=== PATIENT | female | born 1930 | race African-American/Black ===

== ENCOUNTER 2020-03-30 21:14 | Inpatient (IN) | payer MEDICARE, BC ==
[~2020-03-30] VITALS: Ht 162.6 cm; Wt 61.7 kg
[2020-03-30 21:14] VITALS: BP_SYST 136; BP_SYST 156; BP_DIAS 76; BP_DIAS 88
[2020-03-30] MEDS ORDERED: CLONIDINE 0.1MG TABLET PO PRN (23:00)
[2020-03-30] MEDS ORDERED: MAGNESIUM/ALUMINUM HYDROXIDE/SIMETHICONE 30ML UDC PO PRN (23:00)
[2020-03-30] MEDS ORDERED: ONDANSETRON HCL 4MG/2ML INJ IV PRN (23:00)
[2020-03-30] MEDS ORDERED: HYDROCODONE/ACETAMINOPHEN 10/325MG TABLET PO PRN (23:00)
[2020-03-30] MEDS ORDERED: DOCUSATE SODIUM 100MG CAPSULE PO PRN (23:00)
[2020-03-30] MEDS ORDERED: DIPHENHYDRAMINE 50MG/ML VIAL IV PRN (23:00)
[2020-03-30] MEDS ORDERED: IPRATROPIUM/ALBUTEROL 0.5-3(2.5)MG/3ML NEB HHN PRN (23:00)
[2020-03-30] MEDS ORDERED: GUAIFENESIN 200MG/10ML SUGAR FREE UDC PO PRN (23:00)
[2020-03-31 02:57] LABS: CLARITY URINE CLEAR (CLEAR); COLOR URINE YELLOW (YELLOW); KETONES URINE 1+ (NEGATIVE); LEUKOCYTE ESTERASE URINE NEGATIVE (NEGATIVE); NITRITE URINE NEGATIVE (NEGATIVE); OCCULT BLOOD URINE TRACE (NEGATIVE); PH URINE 7.5 (4.5-8.0); PROTEIN URINE 1+ (NEGATIVE); SPECIFIC GRAVITY URINE 1.014 (1.005-1.030); UROBILINOGEN URINE 0.2 E.U./dL (0.2-1.0)
[2020-03-31] MEDS: SODIUM CHLORIDE 0.9% INJ 3ML FLUSH IVF SCH ×3 (06:30→21:52)
[2020-03-31 08:00] VITALS: BP 179/108
[2020-03-31] MEDS: DOCUSATE SODIUM 100MG CAPSULE PO SCH ×2 (09:00→18:12)
[2020-03-31] MEDS: AMLODIPINE 2.5MG TABLET PO SCH ×3 (09:00→21:00)
[2020-03-31] MEDS: CARVEDILOL 3.125 MG TABLET PO SCH ×3 (09:00→21:00)
[2020-03-31] MEDS ORDERED: LOSARTAN POTASSIUM 25 MG TABLET PO SCH (10:30)
[2020-03-31] MEDS: ONDANSETRON 4MG ODT PO PRN (14:23)
[2020-03-31] MEDS ORDERED: CLONIDINE 0.2MG TABLET PO PRN (14:45)
[2020-03-31] MEDS ORDERED: LOSARTAN POTASSIUM 25 MG TABLET PO NR (14:45)
[2020-03-31 20:00] VITALS: BP 100/53
[2020-03-31] MEDS: ENOXAPARIN 30MG/0.3ML SYR SUBCUT SCH (21:00)
[2020-03-31 22:31] LABS: VITAMIN B12 SERUM > 2000.0 pg/mL (211-911)
[2020-04-01] MEDS: SODIUM CHLORIDE 0.9% INJ 3ML FLUSH IVF SCH ×4 (06:00→21:11)
[2020-04-01 07:09] LABS: BASOPHILS % 0.2 % (0.0-2.0); HEMATOCRIT. 31.8 % (36.0-48.0); HEMOGLOBIN. 10.6 g/dL (12.0-16.0); LYMPHOCYTES % 11.6 % (20.0-50.0); MEAN CORPUSCULAR HEMOGLOBIN 29.9 pg (28.0-32.0); MEAN CORPUSCULAR VOLUME 89.6 fL (81.0-99.0); MONOCYTES % 8.5 % (2.0-8.0); NEUTROPHILS % 79.7 % (40.0-76.0); PLATELET 317 x1000/uL (130-400); RED BLOOD CELL COUNT 3.54 mill/uL (4.2-5.4); RED CELL DISTRIBUTION WIDTH 14.1 % (11.6-14.6)
[2020-04-01 07:20] LABS: CHLORIDE 102 mEq/L (98-107)
[2020-04-01 08:00] VITALS: BP 113/59
[2020-04-01] MEDS: BISACODYL 5MG TABLET PO PRN (09:54)
[2020-04-01] MEDS: DOCUSATE SODIUM 100MG CAPSULE PO SCH ×2 (09:54→16:28)
[2020-04-01] MEDS: AMLODIPINE 2.5MG TABLET PO SCH ×2 (09:54→21:08)
[2020-04-01] MEDS: LOSARTAN POTASSIUM 50 MG TABLET PO SCH (09:54)
[2020-04-01] MEDS: CARVEDILOL 3.125 MG TABLET PO SCH ×2 (09:54→21:08)
[2020-04-01 20:00] VITALS: BP 104/53
[2020-04-01] MEDS: ENOXAPARIN 30MG/0.3ML SYR SUBCUT SCH (21:09)
[2020-04-02] MEDS: SODIUM CHLORIDE 0.9% INJ 3ML FLUSH IVF SCH ×3 (06:00→21:26)
[2020-04-02 08:00] VITALS: BP 138/72
[2020-04-02] MEDS: DOCUSATE SODIUM 100MG CAPSULE PO SCH ×2 (09:53→16:56)
[2020-04-02] MEDS: AMLODIPINE 2.5MG TABLET PO SCH ×2 (09:53→21:00)
[2020-04-02] MEDS: LOSARTAN POTASSIUM 50 MG TABLET PO SCH (09:53)
[2020-04-02] MEDS: CARVEDILOL 3.125 MG TABLET PO SCH ×2 (09:54→21:00)
[2020-04-02 20:00] VITALS: BP 116/61
[2020-04-02] MEDS: ENOXAPARIN 30MG/0.3ML SYR SUBCUT SCH (21:26)
[2020-04-03] MEDS: SODIUM CHLORIDE 0.9% INJ 3ML FLUSH IVF SCH (05:44)
[2020-04-03 07:49] LABS: BASOPHILS % 0.5 % (0.0-2.0); EOSINOPHILS % 0.4 % (0.0-5.0); HEMATOCRIT. 30.9 % (36.0-48.0); HEMOGLOBIN. 10.5 g/dL (12.0-16.0); LYMPHOCYTES % 11.5 % (20.0-50.0); MEAN CORPUSCULAR HEMOGLOBIN 30.3 pg (28.0-32.0); MEAN CORPUSCULAR VOLUME 89.4 fL (81.0-99.0); MEAN PLATELET VOLUME 7.7 fl (7.4-10.4); MONOCYTES % 9.1 % (2.0-8.0); NEUTROPHILS % 78.5 % (40.0-76.0); PLATELET 320 x1000/uL (130-400); RED BLOOD CELL COUNT 3.46 mill/uL (4.2-5.4); RED CELL DISTRIBUTION WIDTH 13.8 % (11.6-14.6)
[2020-04-03 07:54] LABS: CHLORIDE 102 mEq/L (98-107)
[2020-04-03 08:21] VITALS: BP 123/60
[2020-04-03] MEDS: CARVEDILOL 3.125 MG TABLET PO SCH ×2 (09:17→21:03)
[2020-04-03] MEDS: AMLODIPINE 2.5MG TABLET PO SCH ×2 (09:17→21:03)
[2020-04-03] MEDS: DOCUSATE SODIUM 100MG CAPSULE PO SCH ×2 (09:17→16:31)
[2020-04-03] MEDS: LOSARTAN POTASSIUM 50 MG TABLET PO SCH (09:17)
[2020-04-03] MEDS ORDERED: POTASSIUM CHLORIDE 20MEQ TABLET SR PO SCH (09:30)
[2020-04-03] MEDS: ACETAMINOPHEN 325MG TABLET PO PRN (16:31)
[2020-04-03 20:00] VITALS: BP 120/66
[2020-04-03] MEDS: ENOXAPARIN 30MG/0.3ML SYR SUBCUT SCH (21:04)
[2020-04-04 07:51] VITALS: BP 139/71
[2020-04-04] MEDS: DOCUSATE SODIUM 100MG CAPSULE PO SCH ×2 (09:18→16:25)
[2020-04-04] MEDS: LOSARTAN POTASSIUM 50 MG TABLET PO SCH (09:18)
[2020-04-04] MEDS: AMLODIPINE 2.5MG TABLET PO SCH ×2 (09:19→20:24)
[2020-04-04] MEDS: CARVEDILOL 3.125 MG TABLET PO SCH ×2 (09:19→20:24)
[2020-04-04] MEDS ORDERED: VITAMIN D2 PO SCH (16:52)
[2020-04-04 20:00] VITALS: BP 129/66
[2020-04-04] MEDS ORDERED: [UNRECOGNIZED DRUG - OTHER] PO SCH (20:00)
[2020-04-04] MEDS ORDERED: BIOTIN PO SCH (20:00)
[2020-04-04] MEDS ORDERED: [UNRECOGNIZED DRUG - OTHER] PO SCH ×2 (20:00)
[2020-04-04] MEDS ORDERED: [UNRECOGNIZED DRUG - OTHER] PO SCH (20:00)
[2020-04-04] MEDS ORDERED: CYANOCOBALAMIN PO SCH (20:00)
[2020-04-04] MEDS: ACETAMINOPHEN 325MG TABLET PO PRN (20:23)
[2020-04-04] MEDS: BISACODYL 5MG TABLET PO PRN (20:23)
[2020-04-04] MEDS: ENOXAPARIN 30MG/0.3ML SYR SUBCUT SCH (20:25)
[2020-04-05] MEDS: ACETAMINOPHEN 325MG TABLET PO PRN (00:43)
[2020-04-05 07:52] VITALS: BP 143/78
[2020-04-05] MEDS: AMLODIPINE 2.5MG TABLET PO SCH ×2 (08:56→21:14)
[2020-04-05] MEDS: LOSARTAN POTASSIUM 50 MG TABLET PO SCH (08:56)
[2020-04-05] MEDS: DOCUSATE SODIUM 100MG CAPSULE PO SCH ×2 (08:56→17:00)
[2020-04-05] MEDS: CARVEDILOL 3.125 MG TABLET PO SCH ×2 (08:57→21:14)
[2020-04-05] MEDS: PATIENT OWN MEDICATION PO SCH (08:57)
[2020-04-05 10:42] LABS: CHLORIDE 102 mEq/L (98-107)
[2020-04-05] MEDS: ASCORBIC ACID 500 MG TABLET PO SCH (15:14)
[2020-04-05] MEDS: ZINC SULFATE 220 MG ( 50 ) CAPSULE PO SCH (15:15)
[2020-04-05 20:00] VITALS: BP 116/56
[2020-04-05] MEDS: ENOXAPARIN 30MG/0.3ML SYR SUBCUT SCH (21:14)
[2020-04-06 07:55] VITALS: BP 152/73
[2020-04-06] MEDS: PATIENT OWN MEDICATION PO SCH (09:00)
[2020-04-06] MEDS: DOCUSATE SODIUM 100MG CAPSULE PO SCH ×2 (09:00→16:30)
[2020-04-06] MEDS: ZINC SULFATE 220 MG ( 50 ) CAPSULE PO SCH (10:20)
[2020-04-06] MEDS: LOSARTAN POTASSIUM 50 MG TABLET PO SCH (10:20)
[2020-04-06] MEDS: ASCORBIC ACID 500 MG TABLET PO SCH (10:20)
[2020-04-06] MEDS: AMLODIPINE 2.5MG TABLET PO SCH ×2 (10:20→21:00)
[2020-04-06] MEDS: CARVEDILOL 3.125 MG TABLET PO SCH ×2 (10:20→21:00)
[2020-04-06] MEDS: ACETAMINOPHEN 325MG TABLET PO PRN ×2 (10:22→18:21)
[2020-04-06 20:00] VITALS: BP 101/45
[2020-04-06] MEDS: ENOXAPARIN 30MG/0.3ML SYR SUBCUT SCH (21:54)
[2020-04-07] MEDS: ACETAMINOPHEN 325MG TABLET PO PRN ×3 (05:25→21:25)
[2020-04-07 07:59] VITALS: BP 128/59
[2020-04-07] MEDS: ASCORBIC ACID 500 MG TABLET PO SCH (08:23)
[2020-04-07] MEDS: LOSARTAN POTASSIUM 50 MG TABLET PO SCH (08:23)
[2020-04-07] MEDS: ZINC SULFATE 220 MG ( 50 ) CAPSULE PO SCH (08:24)
[2020-04-07] MEDS: CARVEDILOL 3.125 MG TABLET PO SCH ×2 (08:24→21:25)
[2020-04-07] MEDS: AMLODIPINE 2.5MG TABLET PO SCH ×2 (08:24→21:26)
[2020-04-07] MEDS: PATIENT OWN MEDICATION PO SCH (08:24)
[2020-04-07] MEDS: DOCUSATE SODIUM 100MG CAPSULE PO SCH ×2 (08:27→17:00)
[2020-04-07] MEDS ORDERED: TAMSULOSIN HCL 0.4MG SR CAPSULE PO SCH (13:30)
[2020-04-07 20:00] VITALS: BP 110/58
[2020-04-07] MEDS: ENOXAPARIN 30MG/0.3ML SYR SUBCUT SCH (21:26)
[2020-04-08] MEDS: TAMSULOSIN HCL 0.4MG SR CAPSULE PO SCH ×2 (05:58→08:53)
[2020-04-08 08:14] VITALS: BP 97/64
[2020-04-08] MEDS: LOSARTAN POTASSIUM 50 MG TABLET PO SCH (08:52)
[2020-04-08] MEDS: DOCUSATE SODIUM 100MG CAPSULE PO SCH ×2 (08:52→16:41)
[2020-04-08] MEDS: AMLODIPINE 2.5MG TABLET PO SCH ×2 (08:52→21:55)
[2020-04-08] MEDS: CARVEDILOL 3.125 MG TABLET PO SCH ×2 (08:52→21:00)
[2020-04-08] MEDS: ZINC SULFATE 220 MG ( 50 ) CAPSULE PO SCH (08:52)
[2020-04-08] MEDS: ASCORBIC ACID 500 MG TABLET PO SCH (08:52)
[2020-04-08] MEDS: PATIENT OWN MEDICATION PO SCH (08:53)
[2020-04-08] MEDS: ACETAMINOPHEN 325MG TABLET PO PRN (09:09)
[2020-04-08] MEDS: TRAMADOL 50MG TABLET PO PRN (14:35)
[2020-04-08 20:00] VITALS: BP_SYST 100; BP_SYST 110; BP_DIAS 61; BP_DIAS 82
[2020-04-08] MEDS: ENOXAPARIN 30MG/0.3ML SYR SUBCUT SCH (21:00)
[2020-04-09] MEDS: TRAMADOL 50MG TABLET PO PRN ×2 (00:37→11:15)
[2020-04-09 08:00] VITALS: BP 146/78
[2020-04-09] MEDS: ASCORBIC ACID 500 MG TABLET PO SCH (09:52)
[2020-04-09] MEDS: ZINC SULFATE 220 MG ( 50 ) CAPSULE PO SCH (09:52)
[2020-04-09] MEDS: TAMSULOSIN HCL 0.4MG SR CAPSULE PO SCH (09:53)
[2020-04-09] MEDS: AMLODIPINE 2.5MG TABLET PO SCH ×2 (09:53→21:39)
[2020-04-09] MEDS: CARVEDILOL 3.125 MG TABLET PO SCH ×2 (09:53→21:38)
[2020-04-09] MEDS: DOCUSATE SODIUM 100MG CAPSULE PO SCH ×2 (09:53→16:49)
[2020-04-09] MEDS: PATIENT OWN MEDICATION PO SCH (09:53)
[2020-04-09] MEDS: LOSARTAN POTASSIUM 50 MG TABLET PO SCH (09:53)
[2020-04-09] MEDS: ONDANSETRON 4MG ODT PO PRN (12:26)
[2020-04-09 20:00] VITALS: BP 120/66
[2020-04-09] MEDS: ENOXAPARIN 30MG/0.3ML SYR SUBCUT SCH (21:39)
[2020-04-10 05:59] LABS: HEMATOCRIT. 29.9 % (36.0-48.0); MEAN CORPUSCULAR HEMOGLOBIN 30.2 pg (28.0-32.0); MEAN CORPUSCULAR VOLUME 90.2 fL (81.0-99.0); MEAN PLATELET VOLUME 7.4 fl (7.4-10.4); PLATELET 369 x1000/uL (130-400); RED BLOOD CELL COUNT 3.32 mill/uL (4.2-5.4); RED CELL DISTRIBUTION WIDTH 14.1 % (11.6-14.6)
[2020-04-10] MEDS: ACETAMINOPHEN 325MG TABLET PO PRN (07:53)
[2020-04-10 08:00] VITALS: BP 107/50
[2020-04-10] MEDS: AMLODIPINE 2.5MG TABLET PO SCH ×2 (09:00→21:00)
[2020-04-10] MEDS: LOSARTAN POTASSIUM 50 MG TABLET PO SCH (09:00)
[2020-04-10] MEDS: CARVEDILOL 3.125 MG TABLET PO SCH ×2 (09:00→21:00)
[2020-04-10] MEDS: DOCUSATE SODIUM 100MG CAPSULE PO SCH ×2 (09:00→17:00)
[2020-04-10] MEDS: TAMSULOSIN HCL 0.4MG SR CAPSULE PO SCH (09:17)
[2020-04-10] MEDS: ZINC SULFATE 220 MG ( 50 ) CAPSULE PO SCH (09:18)
[2020-04-10] MEDS: PATIENT OWN MEDICATION PO SCH (09:19)
[2020-04-10] MEDS: ASCORBIC ACID 500 MG TABLET PO SCH (09:19)
[2020-04-10] MEDS: BISACODYL 5MG TABLET PO PRN (15:43)
[2020-04-10 18:23] LABS: PLATELET ESTIMATE NORMAL
[2020-04-10 20:00] VITALS: BP 106/46
[2020-04-10] MEDS: ENOXAPARIN 30MG/0.3ML SYR SUBCUT SCH (21:33)
[2020-04-11 08:00] VITALS: BP 139/53
[2020-04-11] MEDS: DOCUSATE SODIUM 100MG CAPSULE PO SCH ×2 (09:00→09:19)
[2020-04-11] MEDS: CARVEDILOL 3.125 MG TABLET PO SCH ×2 (09:18→21:27)
[2020-04-11] MEDS: AMLODIPINE 2.5MG TABLET PO SCH ×2 (09:19→21:26)
[2020-04-11] MEDS: TAMSULOSIN HCL 0.4MG SR CAPSULE PO SCH (09:19)
[2020-04-11] MEDS: ASCORBIC ACID 500 MG TABLET PO SCH (09:19)
[2020-04-11] MEDS: LOSARTAN POTASSIUM 50 MG TABLET PO SCH (09:19)
[2020-04-11] MEDS: ZINC SULFATE 220 MG ( 50 ) CAPSULE PO SCH (09:20)
[2020-04-11] MEDS: PATIENT OWN MEDICATION PO SCH (09:20)
[2020-04-11] MEDS: ENOXAPARIN 30MG/0.3ML SYR SUBCUT SCH (12:22)
[2020-04-11] MEDS: ACETAMINOPHEN 325MG TABLET PO PRN (14:37)
[2020-04-11 20:00] VITALS: BP 119/53
[2020-04-12] MEDS: ACETAMINOPHEN 325MG TABLET PO PRN ×2 (04:29→12:58)
[2020-04-12 07:35] VITALS: BP 122/72
[2020-04-12] MEDS: ZINC SULFATE 220 MG ( 50 ) CAPSULE PO SCH (08:10)
[2020-04-12] MEDS: AMLODIPINE 2.5MG TABLET PO SCH ×2 (08:10→22:01)
[2020-04-12] MEDS: TAMSULOSIN HCL 0.4MG SR CAPSULE PO SCH (08:10)
[2020-04-12] MEDS: ENOXAPARIN 30MG/0.3ML SYR SUBCUT SCH (08:10)
[2020-04-12] MEDS: ASCORBIC ACID 500 MG TABLET PO SCH (08:10)
[2020-04-12] MEDS: LOSARTAN POTASSIUM 50 MG TABLET PO SCH (08:11)
[2020-04-12] MEDS: PATIENT OWN MEDICATION PO SCH (08:12)
[2020-04-12] MEDS: CARVEDILOL 3.125 MG TABLET PO SCH ×2 (08:56→22:00)
[2020-04-12 20:00] VITALS: BP 128/55
[2020-04-13] MEDS: ACETAMINOPHEN 325MG TABLET PO PRN ×3 (01:48→22:10)
[2020-04-13 06:15] LABS: BASOPHILS % 0.9 % (0.0-2.0); EOSINOPHILS % 1.1 % (0.0-5.0); HEMATOCRIT. 29.3 % (36.0-48.0); HEMOGLOBIN. 9.9 g/dL (12.0-16.0); LYMPHOCYTES % 13.2 % (20.0-50.0); MEAN CORPUSCULAR HEMOGLOBIN 30.7 pg (28.0-32.0); MEAN CORPUSCULAR VOLUME 90.5 fL (81.0-99.0); MEAN PLATELET VOLUME 7.3 fl (7.4-10.4); NEUTROPHILS % 72.8 % (40.0-76.0); PLATELET 357 x1000/uL (130-400); RED BLOOD CELL COUNT 3.23 mill/uL (4.2-5.4); RED CELL DISTRIBUTION WIDTH 14.3 % (11.6-14.6)
[2020-04-13 06:26] LABS: CHLORIDE 103 mEq/L (98-107)
[2020-04-13 08:00] VITALS: BP 137/80
[2020-04-13] MEDS: ENOXAPARIN 30MG/0.3ML SYR SUBCUT SCH (09:43)
[2020-04-13] MEDS: ZINC SULFATE 220 MG ( 50 ) CAPSULE PO SCH (09:43)
[2020-04-13] MEDS: PATIENT OWN MEDICATION PO SCH (09:43)
[2020-04-13] MEDS: LOSARTAN POTASSIUM 50 MG TABLET PO SCH (09:43)
[2020-04-13] MEDS: CARVEDILOL 3.125 MG TABLET PO SCH ×2 (09:44→22:10)
[2020-04-13] MEDS: AMLODIPINE 2.5MG TABLET PO SCH ×2 (09:44→21:00)
[2020-04-13] MEDS: TAMSULOSIN HCL 0.4MG SR CAPSULE PO SCH (09:44)
[2020-04-13] MEDS: ASCORBIC ACID 500 MG TABLET PO SCH (09:45)
[2020-04-13 20:00] VITALS: BP 119/59
[2020-04-14] MEDS: ACETAMINOPHEN 325MG TABLET PO PRN ×2 (06:58→13:28)
[2020-04-14] MEDS: ASCORBIC ACID 500 MG TABLET PO SCH (11:07)
[2020-04-14] MEDS: CARVEDILOL 3.125 MG TABLET PO SCH ×2 (11:08→21:18)
[2020-04-14] MEDS: ZINC SULFATE 220 MG ( 50 ) CAPSULE PO SCH (11:08)
[2020-04-14] MEDS: AMLODIPINE 2.5MG TABLET PO SCH ×2 (11:08→21:17)
[2020-04-14] MEDS: LOSARTAN POTASSIUM 50 MG TABLET PO SCH (11:08)
[2020-04-14] MEDS: TAMSULOSIN HCL 0.4MG SR CAPSULE PO SCH (11:09)
[2020-04-14] MEDS: PATIENT OWN MEDICATION PO SCH (11:09)
[2020-04-14] MEDS: ENOXAPARIN 30MG/0.3ML SYR SUBCUT SCH (11:09)
[2020-04-14 20:00] VITALS: BP 123/64
[2020-04-15] MEDS: ACETAMINOPHEN 325MG TABLET PO PRN ×2 (01:44→08:18)
[2020-04-15 07:45] VITALS: BP 137/78
[2020-04-15] MEDS: CARVEDILOL 3.125 MG TABLET PO SCH (09:11)
[2020-04-15] MEDS: ENOXAPARIN 30MG/0.3ML SYR SUBCUT SCH (09:11)
[2020-04-15] MEDS: PATIENT OWN MEDICATION PO SCH (09:11)
[2020-04-15] MEDS: AMLODIPINE 2.5MG TABLET PO SCH (09:12)
[2020-04-15] MEDS: LOSARTAN POTASSIUM 50 MG TABLET PO SCH (09:12)
[2020-04-15] MEDS: ZINC SULFATE 220 MG ( 50 ) CAPSULE PO SCH (09:12)
[2020-04-15] MEDS: TAMSULOSIN HCL 0.4MG SR CAPSULE PO SCH (09:12)
[2020-04-15] MEDS: ASCORBIC ACID 500 MG TABLET PO SCH (09:12)
[2020-04-15 13:18] VITALS: BP 135/75
== END 2020-04-15 15:45 | disposition home health service (06) | DRG 535 ==
PROVIDERS: ADMIT Psychiatry & Neurology Neurology; ATTEND Internal Medicine
DX: S72.012A Unspecified intracapsular fracture of left femur, initial encounter for closed fracture (principal); I50.43 Acute on chronic combined systolic (congestive) and diastolic (congestive) heart failure; I67.82 Cerebral ischemia; M48.54XA Collapsed vertebra, not elsewhere classified, thoracic region, initial encounter for fracture; M48.56XA Collapsed vertebra, not elsewhere classified, lumbar region, initial encounter for fracture; G93.40 Encephalopathy, unspecified; I42.9 Cardiomyopathy, unspecified; Z51.89 Encounter for other specified aftercare; E87.6 Hypokalemia; I10 Essential (primary) hypertension; M79.7 Fibromyalgia; R26.81 Unsteadiness on feet; Z96.649 Presence of unspecified artificial hip joint; R62.7 Adult failure to thrive; D72.829 Elevated white blood cell count, unspecified; J44.9 Chronic obstructive pulmonary disease, unspecified; M54.30 Sciatica, unspecified side; J98.6 Disorders of diaphragm
CPT/HCPCS: 36415; 73502; 80048; 80076; 81003; 82140; 82607; 84443; 85025; 92523; 92610; 93970; 95816; 97110; 97116; 97162; 97166; 97530; 97535; J1650; Q0162

== ENCOUNTER 2020-08-23 21:48 | Inpatient (IN) | payer MEDICARE, BC ==
[~2020-08-23] VITALS: Ht 157.5 cm; Wt 54.0 kg
[2020-08-23 21:48] VITALS: BP 115/73
[2020-08-23 22:00] VITALS: BP_SYST 115; BP_SYST 154; BP_DIAS 73; BP_DIAS 88
[2020-08-23] MEDS ORDERED: IPRATROPIUM/ALBUTEROL 0.5-3(2.5)MG/3ML NEB HHN PRN (23:30)
[2020-08-23] MEDS ORDERED: DIPHENHYDRAMINE 50MG/ML VIAL IV PRN (23:30)
[2020-08-23] MEDS ORDERED: GUAIFENESIN 200MG/10ML SUGAR FREE UDC PO PRN (23:30)
[2020-08-23] MEDS ORDERED: ONDANSETRON HCL 4MG/2ML INJ IV PRN (23:30)
[2020-08-23] MEDS ORDERED: MAGNESIUM/ALUMINUM HYDROXIDE/SIMETHICONE 30ML UDC PO PRN (23:30)
[2020-08-23] MEDS ORDERED: BISACODYL 5MG TABLET PO PRN (23:30)
[2020-08-23] MEDS ORDERED: HYDRALAZINE 20MG/ML VIAL IV PRN (23:30)
[2020-08-23] MEDS ORDERED: DOCUSATE SODIUM 100MG CAPSULE PO PRN (23:30)
[2020-08-24] MEDS: HYDROCODONE/ACETAMINOPHEN 5/325MG TABLET PO PRN ×4 (00:52→20:26)
[2020-08-24] MEDS ORDERED: HYDRALAZINE 10 MG in SODIUM CHLORIDE 0.9% 49.5 ML IV PRN (01:00)
[2020-08-24] MEDS: DEXT 5%/0.45% NACL 1000ML 1,000 ML IV SCH (01:00)
[2020-08-24 03:18] LABS: CLARITY URINE CLEAR (CLEAR); COLOR URINE YELLOW (YELLOW); KETONES URINE NEGATIVE (NEGATIVE); LEUKOCYTE ESTERASE URINE NEGATIVE (NEGATIVE); NITRITE URINE NEGATIVE (NEGATIVE); OCCULT BLOOD URINE NEGATIVE (NEGATIVE); PROTEIN URINE NEGATIVE (NEGATIVE); SPECIFIC GRAVITY URINE 1.008 (1.005-1.030); UROBILINOGEN URINE 0.2 E.U./dL (0.2-1.0)
[2020-08-24] MEDS: SODIUM CHLORIDE 0.9% INJ 3ML FLUSH IVF SCH ×3 (06:16→20:25)
[2020-08-24] MEDS: CLONIDINE 0.1MG TABLET PO PRN (06:26)
[2020-08-24 07:58] VITALS: BP 137/85
[2020-08-24] MEDS: CARVEDILOL 3.125 MG TABLET PO SCH ×2 (08:33→20:25)
[2020-08-24] MEDS: DOCUSATE SODIUM 100MG CAPSULE PO SCH ×2 (08:33→16:40)
[2020-08-24] MEDS: LOSARTAN POTASSIUM 25 MG TABLET PO SCH (08:33)
[2020-08-24] MEDS: ENOXAPARIN 30MG/0.3ML SYR SUBCUT SCH (08:34)
[2020-08-24] MEDS: ACETAMINOPHEN 325MG TABLET PO PRN (15:16)
[2020-08-24] MEDS: NA PHOS,M-B/NA PHOS,DI-BA ENEMA 118ML PR PRN (17:32)
[2020-08-24 20:00] VITALS: BP 159/86
[2020-08-25] MEDS: HYDROCODONE/ACETAMINOPHEN 5/325MG TABLET PO PRN ×4 (01:33→20:30)
[2020-08-25] MEDS: SODIUM CHLORIDE 0.9% INJ 3ML FLUSH IVF SCH ×3 (05:51→20:31)
[2020-08-25 06:33] LABS: BASOPHILS % 0.6 % (0.0-2.0); EOSINOPHILS % 1.7 % (0.0-5.0); HEMATOCRIT. 28.8 % (36.0-48.0); HEMOGLOBIN. 9.6 g/dL (12.0-16.0); LYMPHOCYTES % 14.7 % (20.0-50.0); MEAN CORPUSCULAR VOLUME 87.1 fL (81.0-99.0); MEAN PLATELET VOLUME 7.8 fl (7.4-10.4); MONOCYTES % 12.6 % (2.0-8.0); NEUTROPHILS % 70.4 % (40.0-76.0); PLATELET 244 x1000/uL (130-400); RED BLOOD CELL COUNT 3.31 mill/uL (4.2-5.4); RED CELL DISTRIBUTION WIDTH 15.5 % (11.6-14.6)
[2020-08-25 06:57] LABS: CHLORIDE 104 mEq/L (98-107)
[2020-08-25] MEDS: DOCUSATE SODIUM 100MG CAPSULE PO SCH ×2 (08:29→17:02)
[2020-08-25] MEDS: LOSARTAN POTASSIUM 25 MG TABLET PO SCH (08:29)
[2020-08-25 08:30] VITALS: BP 157/82
[2020-08-25] MEDS: ENOXAPARIN 30MG/0.3ML SYR SUBCUT SCH (08:30)
[2020-08-25] MEDS: CARVEDILOL 3.125 MG TABLET PO SCH ×2 (08:30→20:31)
[2020-08-25] MEDS: CLONIDINE 0.1MG TABLET PO PRN (13:54)
[2020-08-25] MEDS: NA PHOS,M-B/NA PHOS,DI-BA ENEMA 118ML PR PRN (13:55)
[2020-08-25] MEDS ORDERED: NA PHOS,M-B/NA PHOS,DI-BA ENEMA 118ML PR PRN (14:00)
[2020-08-25 16:27] VITALS: BP 155/89
[2020-08-25 20:00] VITALS: BP 128/60
[2020-08-26] MEDS: SODIUM CHLORIDE 0.9% INJ 3ML FLUSH IVF SCH ×3 (06:46→21:18)
[2020-08-26] MEDS: HYDROCODONE/ACETAMINOPHEN 5/325MG TABLET PO PRN ×3 (07:16→18:12)
[2020-08-26 07:58] VITALS: BP 146/84
[2020-08-26] MEDS: CARVEDILOL 3.125 MG TABLET PO SCH ×2 (08:25→20:10)
[2020-08-26] MEDS: LOSARTAN POTASSIUM 25 MG TABLET PO SCH (08:25)
[2020-08-26] MEDS: DOCUSATE SODIUM 100MG CAPSULE PO SCH ×2 (08:25→17:00)
[2020-08-26] MEDS: ENOXAPARIN 30MG/0.3ML SYR SUBCUT SCH (08:26)
[2020-08-26 20:00] VITALS: BP 124/65
[2020-08-27] MEDS: DEXT 5%/0.45% NACL 1000ML 1,000 ML IV SCH ×2 (01:25→09:00)
[2020-08-27] MEDS: SODIUM CHLORIDE 0.9% INJ 3ML FLUSH IVF SCH ×3 (05:57→21:25)
[2020-08-27] MEDS: HYDROCODONE/ACETAMINOPHEN 5/325MG TABLET PO PRN ×4 (05:57→21:25)
[2020-08-27 08:00] VITALS: BP 147/82
[2020-08-27] MEDS: TAMSULOSIN HCL 0.4MG SR CAPSULE PO SCH (08:39)
[2020-08-27] MEDS: DOCUSATE SODIUM 100MG CAPSULE PO SCH ×2 (08:40→16:50)
[2020-08-27] MEDS: ENOXAPARIN 30MG/0.3ML SYR SUBCUT SCH (08:40)
[2020-08-27] MEDS: LOSARTAN POTASSIUM 25 MG TABLET PO SCH (08:40)
[2020-08-27] MEDS: CARVEDILOL 3.125 MG TABLET PO SCH ×2 (08:40→21:24)
[2020-08-27 20:00] VITALS: BP 113/74
[2020-08-28] MEDS: DEXT 5%/0.45% NACL 1000ML 1,000 ML IV SCH (04:06)
[2020-08-28] MEDS: HYDROCODONE/ACETAMINOPHEN 5/325MG TABLET PO PRN ×5 (04:06→21:27)
[2020-08-28] MEDS: SODIUM CHLORIDE 0.9% INJ 3ML FLUSH IVF SCH ×3 (05:01→21:00)
[2020-08-28 07:54] VITALS: BP 159/78
[2020-08-28] MEDS: TAMSULOSIN HCL 0.4MG SR CAPSULE PO SCH (08:21)
[2020-08-28] MEDS: DOCUSATE SODIUM 100MG CAPSULE PO SCH ×2 (08:21→16:26)
[2020-08-28] MEDS: CARVEDILOL 3.125 MG TABLET PO SCH ×2 (08:21→20:29)
[2020-08-28] MEDS: ENOXAPARIN 30MG/0.3ML SYR SUBCUT SCH (08:21)
[2020-08-28] MEDS: LOSARTAN POTASSIUM 25 MG TABLET PO SCH (08:21)
[2020-08-28 20:00] VITALS: BP 108/50
[2020-08-29] MEDS: HYDROCODONE/ACETAMINOPHEN 5/325MG TABLET PO PRN ×5 (01:42→21:10)
[2020-08-29] MEDS: SODIUM CHLORIDE 0.9% INJ 3ML FLUSH IVF SCH ×3 (05:48→21:11)
[2020-08-29 07:43] VITALS: BP 135/69
[2020-08-29] MEDS: DOCUSATE SODIUM 100MG CAPSULE PO SCH ×2 (08:22→16:27)
[2020-08-29] MEDS: LOSARTAN POTASSIUM 25 MG TABLET PO SCH (08:22)
[2020-08-29] MEDS: ENOXAPARIN 30MG/0.3ML SYR SUBCUT SCH (08:22)
[2020-08-29] MEDS: TAMSULOSIN HCL 0.4MG SR CAPSULE PO SCH (08:23)
[2020-08-29] MEDS: CARVEDILOL 3.125 MG TABLET PO SCH ×2 (08:23→21:10)
[2020-08-29 20:00] VITALS: BP 105/57
[2020-08-30] MEDS: HYDROCODONE/ACETAMINOPHEN 5/325MG TABLET PO PRN ×5 (01:11→23:22)
[2020-08-30] MEDS: SODIUM CHLORIDE 0.9% INJ 3ML FLUSH IVF SCH ×3 (06:39→21:39)
[2020-08-30] MEDS: CLONIDINE 0.1MG TABLET PO PRN (06:45)
[2020-08-30 07:56] VITALS: BP 144/72
[2020-08-30] MEDS: ENOXAPARIN 30MG/0.3ML SYR SUBCUT SCH (08:23)
[2020-08-30] MEDS: LOSARTAN POTASSIUM 25 MG TABLET PO SCH (08:23)
[2020-08-30] MEDS: BISACODYL 5MG TABLET PO PRN (08:23)
[2020-08-30] MEDS: TAMSULOSIN HCL 0.4MG SR CAPSULE PO SCH (08:24)
[2020-08-30] MEDS: DOCUSATE SODIUM 100MG CAPSULE PO SCH ×2 (08:24→16:07)
[2020-08-30] MEDS: CARVEDILOL 3.125 MG TABLET PO SCH ×2 (08:24→21:00)
[2020-08-30 20:00] VITALS: BP 105/55
[2020-08-31] MEDS: ACETAMINOPHEN 325MG TABLET PO PRN ×3 (06:22→22:25)
[2020-08-31] MEDS: SODIUM CHLORIDE 0.9% INJ 3ML FLUSH IVF SCH ×3 (06:22→22:24)
[2020-08-31 07:48] VITALS: BP 144/66
[2020-08-31] MEDS: ENOXAPARIN 30MG/0.3ML SYR SUBCUT SCH (08:03)
[2020-08-31] MEDS: DOCUSATE SODIUM 100MG CAPSULE PO SCH ×2 (08:03→16:56)
[2020-08-31] MEDS: CARVEDILOL 3.125 MG TABLET PO SCH ×2 (08:03→22:24)
[2020-08-31] MEDS: LOSARTAN POTASSIUM 25 MG TABLET PO SCH (08:03)
[2020-08-31] MEDS: TAMSULOSIN HCL 0.4MG SR CAPSULE PO SCH (08:03)
[2020-08-31] MEDS: HYDROCODONE/ACETAMINOPHEN 5/325MG TABLET PO PRN ×2 (08:04→13:24)
[2020-08-31] MEDS: INSULIN GLARGINE UD 100 UNITS/ML SYR SUBCUT SCH ×2 (09:58→09:59)
[2020-08-31 20:00] VITALS: BP 138/62
[2020-09-01] MEDS: SODIUM CHLORIDE 0.9% INJ 3ML FLUSH IVF SCH ×3 (05:25→21:52)
[2020-09-01] MEDS: ACETAMINOPHEN 325MG TABLET PO PRN ×2 (05:26→16:46)
[2020-09-01 08:00] VITALS: BP_SYST 139; BP_SYST 146; BP_DIAS 65; BP_DIAS 73
[2020-09-01] MEDS: DOCUSATE SODIUM 100MG CAPSULE PO SCH ×2 (08:10→16:46)
[2020-09-01] MEDS: HYDROCODONE/ACETAMINOPHEN 5/325MG TABLET PO PRN ×3 (08:10→22:28)
[2020-09-01] MEDS: LOSARTAN POTASSIUM 25 MG TABLET PO SCH (08:10)
[2020-09-01] MEDS: TAMSULOSIN HCL 0.4MG SR CAPSULE PO SCH (08:11)
[2020-09-01] MEDS: ENOXAPARIN 30MG/0.3ML SYR SUBCUT SCH (08:35)
[2020-09-01] MEDS: CARVEDILOL 3.125 MG TABLET PO SCH ×2 (09:00→21:52)
[2020-09-01 20:00] VITALS: BP 124/62
[2020-09-02] MEDS: SODIUM CHLORIDE 0.9% INJ 3ML FLUSH IVF SCH ×3 (06:41→21:01)
[2020-09-02] MEDS: HYDROCODONE/ACETAMINOPHEN 5/325MG TABLET PO PRN ×4 (06:51→23:04)
[2020-09-02 07:50] VITALS: BP 138/76
[2020-09-02] MEDS: DOCUSATE SODIUM 100MG CAPSULE PO SCH ×2 (09:02→16:55)
[2020-09-02] MEDS: TAMSULOSIN HCL 0.4MG SR CAPSULE PO SCH (09:03)
[2020-09-02] MEDS: LOSARTAN POTASSIUM 25 MG TABLET PO SCH (09:04)
[2020-09-02] MEDS: CARVEDILOL 3.125 MG TABLET PO SCH ×2 (09:04→21:01)
[2020-09-02] MEDS: ENOXAPARIN 30MG/0.3ML SYR SUBCUT SCH (09:05)
[2020-09-02] MEDS: ACETAMINOPHEN 325MG TABLET PO PRN (12:18)
[2020-09-02] MEDS ORDERED: MAGNESIUM HYDROXIDE 400MG/5ML 30ML UDC PO PRN (15:30)
[2020-09-02] MEDS: BISACODYL 5MG TABLET PO PRN (16:55)
[2020-09-02 20:00] VITALS: BP 99/52
[2020-09-03] MEDS: SODIUM CHLORIDE 0.9% INJ 3ML FLUSH IVF SCH ×3 (06:05→22:00)
[2020-09-03] MEDS: HYDROCODONE/ACETAMINOPHEN 5/325MG TABLET PO PRN ×3 (06:35→19:32)
[2020-09-03] MEDS: TAMSULOSIN HCL 0.4MG SR CAPSULE PO SCH (08:58)
[2020-09-03] MEDS: DOCUSATE SODIUM 100MG CAPSULE PO SCH ×2 (08:58→17:36)
[2020-09-03] MEDS: CARVEDILOL 3.125 MG TABLET PO SCH ×2 (08:59→20:32)
[2020-09-03] MEDS: LOSARTAN POTASSIUM 25 MG TABLET PO SCH (08:59)
[2020-09-03] MEDS: ENOXAPARIN 30MG/0.3ML SYR SUBCUT SCH (09:02)
[2020-09-03 09:48] VITALS: BP 151/89
[2020-09-03] MEDS: NA PHOS,M-B/NA PHOS,DI-BA ENEMA 118ML PR PRN (17:36)
[2020-09-03 20:00] VITALS: BP 151/71
[2020-09-04] MEDS: HYDROCODONE/ACETAMINOPHEN 5/325MG TABLET PO PRN ×5 (02:01→21:33)
[2020-09-04] MEDS: SODIUM CHLORIDE 0.9% INJ 3ML FLUSH IVF SCH ×3 (06:00→21:34)
[2020-09-04 08:08] VITALS: BP 117/62
[2020-09-04] MEDS: DOCUSATE SODIUM 100MG CAPSULE PO SCH ×2 (08:18→16:26)
[2020-09-04] MEDS: TAMSULOSIN HCL 0.4MG SR CAPSULE PO SCH (08:18)
[2020-09-04] MEDS: ENOXAPARIN 30MG/0.3ML SYR SUBCUT SCH (08:18)
[2020-09-04] MEDS: LOSARTAN POTASSIUM 25 MG TABLET PO SCH (08:18)
[2020-09-04] MEDS: CARVEDILOL 3.125 MG TABLET PO SCH ×2 (08:19→21:34)
[2020-09-04] MEDS ORDERED: DIPHENHYDRAMINE 50MG/ML VIAL IV PRN (12:30)
[2020-09-04 20:00] VITALS: BP 143/79
[2020-09-05] MEDS: SODIUM CHLORIDE 0.9% INJ 3ML FLUSH IVF SCH ×3 (05:55→22:00)
[2020-09-05] MEDS: HYDROCODONE/ACETAMINOPHEN 5/325MG TABLET PO PRN ×2 (05:55→14:55)
[2020-09-05 05:57] LABS: BASOPHILS % 0.8 % (0.0-2.0); EOSINOPHILS % 3.5 % (0.0-5.0); HEMOGLOBIN. 8.8 g/dL (12.0-16.0); LYMPHOCYTES % 14.5 % (20.0-50.0); MEAN CORPUSCULAR VOLUME 88.8 fL (81.0-99.0); MEAN PLATELET VOLUME 7.2 fl (7.4-10.4); MONOCYTES % 12.8 % (2.0-8.0); NEUTROPHILS % 68.4 % (40.0-76.0); PLATELET 388 x1000/uL (130-400); RED BLOOD CELL COUNT 2.92 mill/uL (4.2-5.4); RED CELL DISTRIBUTION WIDTH 15.3 % (11.6-14.6)
[2020-09-05 07:43] LABS: CHLORIDE 107 mEq/L (98-107)
[2020-09-05 08:00] VITALS: BP 97/60
[2020-09-05] MEDS: CARVEDILOL 3.125 MG TABLET PO SCH ×2 (09:00→22:13)
[2020-09-05] MEDS: LOSARTAN POTASSIUM 25 MG TABLET PO SCH (09:00)
[2020-09-05] MEDS: ENOXAPARIN 30MG/0.3ML SYR SUBCUT SCH (09:05)
[2020-09-05] MEDS: DOCUSATE SODIUM 100MG CAPSULE PO SCH ×2 (09:06→16:42)
[2020-09-05] MEDS: TAMSULOSIN HCL 0.4MG SR CAPSULE PO SCH (09:07)
[2020-09-05] MEDS: BISACODYL 5MG TABLET PO PRN (16:42)
[2020-09-05 20:00] VITALS: BP 145/69
[2020-09-05] MEDS: ACETAMINOPHEN 325MG TABLET PO PRN (22:14)
[2020-09-06] MEDS: HYDROCODONE/ACETAMINOPHEN 5/325MG TABLET PO PRN ×3 (03:51→16:54)
[2020-09-06] MEDS: SODIUM CHLORIDE 0.9% INJ 3ML FLUSH IVF SCH (04:52)
[2020-09-06 08:00] VITALS: BP 137/60
[2020-09-06] MEDS: DOCUSATE SODIUM 100MG CAPSULE PO SCH ×2 (08:30→16:52)
[2020-09-06] MEDS: LOSARTAN POTASSIUM 25 MG TABLET PO SCH (08:30)
[2020-09-06] MEDS: TAMSULOSIN HCL 0.4MG SR CAPSULE PO SCH (08:30)
[2020-09-06] MEDS: CARVEDILOL 3.125 MG TABLET PO SCH ×2 (08:30→21:52)
[2020-09-06] MEDS: ENOXAPARIN 30MG/0.3ML SYR SUBCUT SCH (08:31)
[2020-09-06 20:00] VITALS: BP 130/68
[2020-09-06] MEDS: ACETAMINOPHEN 325MG TABLET PO PRN (21:53)
[2020-09-06 22:00] VITALS: BP 130/70
[2020-09-07] MEDS: HYDROCODONE/ACETAMINOPHEN 5/325MG TABLET PO PRN ×3 (04:27→16:47)
[2020-09-07 08:03] VITALS: BP 153/77
[2020-09-07] MEDS: LOSARTAN POTASSIUM 25 MG TABLET PO SCH (08:32)
[2020-09-07] MEDS: DOCUSATE SODIUM 100MG CAPSULE PO SCH ×2 (08:32→16:29)
[2020-09-07] MEDS: TAMSULOSIN HCL 0.4MG SR CAPSULE PO SCH (08:33)
[2020-09-07] MEDS: ENOXAPARIN 30MG/0.3ML SYR SUBCUT SCH (08:34)
[2020-09-07] MEDS: CARVEDILOL 3.125 MG TABLET PO SCH ×2 (08:35→21:09)
[2020-09-07 10:30] VITALS: BP 99/64
[2020-09-07 10:35] VITALS: BP 107/69
[2020-09-07 10:40] VITALS: BP 115/73
[2020-09-07 16:48] VITALS: BP 152/76
[2020-09-07 20:00] VITALS: BP 167/89
[2020-09-07] MEDS: ACETAMINOPHEN 325MG TABLET PO PRN (21:09)
[2020-09-08] MEDS ORDERED: HYDROCODONE/ACETAMINOPHEN 5/325MG TABLET PO PRN (06:30)
[2020-09-08 08:30] VITALS: BP 155/74
[2020-09-08] MEDS: ACETAMINOPHEN 325MG TABLET PO PRN (10:17)
[2020-09-08] MEDS: CARVEDILOL 3.125 MG TABLET PO SCH (10:17)
[2020-09-08] MEDS: TAMSULOSIN HCL 0.4MG SR CAPSULE PO SCH (10:17)
[2020-09-08] MEDS: LOSARTAN POTASSIUM 25 MG TABLET PO SCH (10:17)
[2020-09-08] MEDS: DOCUSATE SODIUM 100MG CAPSULE PO SCH (10:17)
[2020-09-08] MEDS: ENOXAPARIN 30MG/0.3ML SYR SUBCUT SCH (10:18)
[2020-09-08 14:38] VITALS: BP 155/74
== END 2020-09-08 15:15 | disposition home health service (06) | DRG 536 ==
PROVIDERS: ADMIT Psychiatry & Neurology Neurology; ATTEND Internal Medicine
DX: S72.001A Fracture of unspecified part of neck of right femur, initial encounter for closed fracture (principal); M48.54XA Collapsed vertebra, not elsewhere classified, thoracic region, initial encounter for fracture; I42.9 Cardiomyopathy, unspecified; M48.56XA Collapsed vertebra, not elsewhere classified, lumbar region, initial encounter for fracture; K59.09 Other constipation; M47.812 Spondylosis without myelopathy or radiculopathy, cervical region; I10 Essential (primary) hypertension; Z96.642 Presence of left artificial hip joint; M79.7 Fibromyalgia; W18.39XA Other fall on same level, initial encounter; R33.9 Retention of urine, unspecified; M81.8 Other osteoporosis without current pathological fracture; R26.81 Unsteadiness on feet; Z86.73 Personal history of transient ischemic attack (TIA), and cerebral infarction without residual deficits; Y93.89 Activity, other specified; Y92.89 Other specified places as the place of occurrence of the external cause; Y99.8 Other external cause status
CPT/HCPCS: 36415; 73502; 80048; 81003; 82962; 85025; 97110; 97116; 97162; 97166; 97530; 97535; J1650; J1815; A4315; A5200